=== PATIENT | male | born 1955 | race Caucasian/White ===

== ENCOUNTER 2018-04-03 11:12 | Inpatient (IN) | payer BC, OTHER ==
[2018-04-03] VITALS (7 sets, daily range): BP systolic 126–154; BP diastolic 81–92
[~2018-04-03] VITALS: Ht 188 cm; Wt 115.9 kg
[2018-04-03] MEDS ORDERED: METF500T9 PO (12:16)
[2018-04-03] MEDS ORDERED: ZOLP10TA5 PO (12:16)
[2018-04-03] MEDS ORDERED: PRAV20TA2 PO (12:16)
[2018-04-03] MEDS ORDERED: FURO20TA3 PO (12:16)
[2018-04-03] MEDS ORDERED: HYDR25TA6 PO (12:16)
[2018-04-03] MEDS ORDERED: AMLO1CAP3 PO (12:16)
[2018-04-03] MEDS ORDERED: FLUT1BLS INH (12:16)
[2018-04-03] MEDS ORDERED: POTA20TA89 PO (12:16)
[2018-04-03] MEDS ORDERED: SODIUM CHLORIDE FLUSH 10ML SYR IVF ONE (12:30)
[2018-04-03] MEDS ORDERED: ONDANSETRON 2MG/ML, 2ML IVPush ONE (12:30)
[2018-04-03] MEDS ORDERED: ASPIRIN 81 MG TABLET CHEW PO ONE (12:30)
[2018-04-03] MEDS ORDERED: MORPHINE SULFATE 4 MG/ML, 1ML IVPush PRN (12:30)
[2018-04-03] MEDS ORDERED: ASPIRIN 81 MG TABLET CHEW ONE (12:51)
[2018-04-03] MEDS ORDERED: METOPROLOL TARTRATE 50 MG TABLET PO ONE (13:00)
[2018-04-03] MEDS ORDERED: METOPROLOL TARTRATE 50 MG TABLET ONE (13:05)
[2018-04-03 13:11] LABS: ALANINE AMINOTRANSFERASE 51 U/L (12-78); ALBUMIN 3.9 g/dL (3.4-5.0); ANION GAP 8 mmol/L (5-15); CALCIUM 9.2 mg/dL (8.5-10.1); CHLORIDE 107 mmol/L (98-107)
[2018-04-03 13:15] LABS: ALKALINE PHOSPHATASE 52 U/L (45-117); BILIRUBIN,TOTAL 0.6 mg/dL (0.2-1.0); TOTAL PROTEIN 7.7 g/dL (6.4-8.2)
[2018-04-03 13:18] LABS: TROPONIN I 0.731 ng/mL (0.000-0.045)
[2018-04-03 13:38] LABS: MEAN CORPUSCULAR HEMOGLOBIN 28.9 pg (27.5-34.5); MEAN CORPUSCULAR HGB CONC 33.6 g/dL (33.2-36.2); MEAN CORPUSCULAR VOLUME 86.1 fL (81-97); MEAN PLATELET VOLUME 10.6 fL (7.4-10.4); PLATELET COUNT 192 x10^3/uL (130-400); RED BLOOD COUNT 5.97 x10^6/uL (4.38-5.82); RED CELL DISTRIBUTION WIDTH 13.6 % (9.4-14.8)
[2018-04-03 13:39] LABS: <PLATELET ESTIMATE> ADEQUATE; <RBC MORPHOLOGY> NORMAL; BASOPHILS # (AUTO) 0.05 x10^3/uL (0-0.1); BASOPHILS % (AUTO) 1 % (0-1); EOSINOPHILS # (AUTO) 0.27 x10^3/uL (0-0.4); EOSINOPHILS % (AUTO) 4 % (1-7); LARGE PLATELETS 1+; LYMPHOCYTES # (AUTO) 1.25 x10^3/uL (1-3.4); LYMPHOCYTES % (AUTO) 20 % (22-44); MD MORPH REVIEW ONLY; MONOCYTES # (AUTO) 0.34 x10^3/uL (0.2-0.8); MONOCYTES % (AUTO) 5 % (2-9); NEUTROPHILS # (AUTO) 4.29 x10^3/uL (1.8-6.8); NEUTROPHILS % (AUTO) 69 % (42-75)
[2018-04-03] MEDS ORDERED: ONDANSETRON 2MG/ML, 2ML IVPush PRN (14:30)
[2018-04-03] MEDS ORDERED: hydrALAzine 20 MG/ML, 1ML IVPush PRN (14:30)
[2018-04-03] MEDS: ENOXAPARIN 40 MG/0.4 ML SQ SCH (14:48)
[2018-04-03 14:53] LABS: FREE T4 (FREE THYROXINE) 1.15 ng/dL (0.76-1.46); THYROID STIMULATING HORMONE 2.7 mIU/L (0.358-3.740)
[2018-04-03] MEDS ORDERED: ENOXAPARIN 40 MG/0.4 ML ONE (14:53)
[2018-04-03] MEDS ORDERED: POLYETHYLENE GLYCOL 17 GM PACKET PO PRN (15:30)
[2018-04-03] MEDS: INSULIN LISPRO 100 UNITS/ML, PEN SQ-INSULIN SCH ×2 (16:00→21:13)
[2018-04-03] MEDS: morphine SULFATE 10 MG/ML, 1ML IVPush PRN ×2 (16:01→20:23)
[2018-04-03] MEDS ORDERED: NITROGLYCERIN 0.4 MG BOTTLE (25 TABS) SL ONE (19:48)
[2018-04-03] MEDS ORDERED: NITROGLYCERIN 0.4 MG/SPRAY SL PRN (20:00)
[2018-04-03] MEDS: NITROGLYCERIN 0.4 MG BOTTLE (25 TABS) SL PRN ×3 (20:00→20:12)
[2018-04-03] MEDS ORDERED: metFORMIN XR 500 MG TAB.ER.24H PO SCH (21:00)
[2018-04-03] MEDS ORDERED: PRAVASTATIN 20 MG TABLET PO SCH (21:00)
[2018-04-03] MEDS: PANTOPROZOLE 40MG TABLET PO SCH (21:09)
[2018-04-03] MEDS: ATORVASTATIN 80 MG TABLET PO SCH (21:09)
[2018-04-03] MEDS: METOPROLOL TARTRATE 25 MG TABLET PO SCH (21:10)
[2018-04-03] MEDS: ACETAMINOPHEN 325 MG TABLET PO PRN (21:18)
[2018-04-03] MEDS: TEMAZEPAM 15 MG CAPSULE PO PRN (23:01)
[2018-04-04] MEDS ORDERED: ENOXAPARIN 80 MG/0.8 ML SQ ONE
[2018-04-04 00:23] VITALS: BP 135/81
[2018-04-04 05:23] LABS: ANION GAP 8 mmol/L (5-15); CHLORIDE 107 mmol/L (98-107)
[2018-04-04 05:30] LABS: CALCIUM 8.7 mg/dL (8.5-10.1); CHOL/HDL RATIO 5.3; CHOLESTEROL, TOTAL 200 mg/dL (140-239); HDL CHOL % 19 % (26-37); HDL CHOLESTEROL (DIRECT) 38 mg/dL (40-60); LDL CHOLESTEROL,CALCULATED 136 mg/dL (54-169); LDL/HDL RATIO 3.6 (0.5-3.0); TRIGLYCERIDES 132 mg/dL (50-200); VLDL CHOLESTEROL 26 mg/dL (0-25)
[2018-04-04 05:36] LABS: BASOPHILS # (AUTO) 0.03 x10^3/uL (0-0.1); BASOPHILS % (AUTO) 1 % (0-1); EOSINOPHILS # (AUTO) 0.51 x10^3/uL (0-0.4); EOSINOPHILS % (AUTO) 7 % (1-7); LYMPHOCYTES # (AUTO) 2.17 x10^3/uL (1-3.4); LYMPHOCYTES % (AUTO) 28 % (22-44); MD NO; MEAN CORPUSCULAR HEMOGLOBIN 28.6 pg (27.5-34.5); MEAN CORPUSCULAR HGB CONC 33.2 g/dL (33.2-36.2); MEAN CORPUSCULAR VOLUME 86.2 fL (81-97); MEAN PLATELET VOLUME 10.2 fL (7.4-10.4); MONOCYTES # (AUTO) 0.48 x10^3/uL (0.2-0.8); MONOCYTES % (AUTO) 6 % (2-9); NEUTROPHILS # (AUTO) 4.63 x10^3/uL (1.8-6.8); NEUTROPHILS % (AUTO) 59 % (42-75); PLATELET COUNT 191 x10^3/uL (130-400); RED BLOOD COUNT 5.85 x10^6/uL (4.38-5.82); RED CELL DISTRIBUTION WIDTH 13.4 % (9.4-14.8)
[2018-04-04] MEDS: ASPIRIN 325 MG TABLET EC PO SCH (06:11)
[2018-04-04] MEDS: ACETAMINOPHEN 325 MG TABLET PO PRN ×2 (06:15→20:05)
[2018-04-04] MEDS: INSULIN LISPRO 100 UNITS/ML, PEN SQ-INSULIN SCH ×4 (07:00→21:00)
[2018-04-04] MEDS: AMLODIPINE 5 MG TABLET PO SCH (08:21)
[2018-04-04] MEDS: FUROSEMIDE 20 MG TABLET PO SCH (08:22)
[2018-04-04] MEDS: POTASSIUM CHLORIDE 20 MEQ TAB.ER.PRT PO SCH (08:22)
[2018-04-04] MEDS: METOPROLOL TARTRATE 25 MG TABLET PO SCH ×2 (08:22→20:05)
[2018-04-04] MEDS: PANTOPROZOLE 40MG TABLET PO SCH ×2 (08:33→20:05)
[2018-04-04] MEDS: BENAZEPRIL 20 MG TABLET PO SCH (08:39)
[2018-04-04] MEDS ORDERED: BENAZEPRIL PO SCH (09:00)
[2018-04-04] MEDS ORDERED: AMLODIPINE BESYLATE PO SCH (09:00)
[2018-04-04] MEDS ORDERED: [UNRECOGNIZED DRUG - OTHER] PO SCH (09:00)
[2018-04-04] MEDS ORDERED: SODIUM CHLORIDE 0.9% 1,000 ML IV ONE (10:00)
[2018-04-04 10:08] VITALS: BP 153/84
[2018-04-04] MEDS ORDERED: MIDAZOLAM 1 MG/ML, 5ML ONE (10:53)
[2018-04-04] MEDS ORDERED: VERAPAMIL 2.5 MG/ML, 2ML ONE (10:53)
[2018-04-04] MEDS ORDERED: TICAGRELOR 90 MG TABLET ONE (10:53)
[2018-04-04] MEDS ORDERED: FENTANYL PF 100 MCG/2ML ONE (10:53)
[2018-04-04] MEDS ORDERED: LIDOCAINE 2%, 2ML ONE (10:54)
[2018-04-04] MEDS ORDERED: HEPARIN 1,000 UNITS/ML, 10ML ONE (10:54)
[2018-04-04] MEDS ORDERED: NITROGLYCERIN 5 MG/ML, 10ML ONE (10:54)
[2018-04-04] MEDS ORDERED: BIVALIRUDIN 250 MG ONE (10:54)
[2018-04-04] MEDS: morphine SULFATE 10 MG/ML, 1ML IVPush PRN (12:28)
[2018-04-04] MEDS: SODIUM CHLORIDE 0.9% 1,000 ML IV SCH ×2 (12:37→20:10)
[2018-04-04 15:13] VITALS: BP 133/80
[2018-04-04] MEDS: ENOXAPARIN 40 MG/0.4 ML SQ SCH (16:27)
[2018-04-04 20:03] VITALS: BP 157/88
[2018-04-04] MEDS: ATORVASTATIN 80 MG TABLET PO SCH (20:05)
[2018-04-04] MEDS: TEMAZEPAM 15 MG CAPSULE PO PRN (20:15)
[2018-04-05 00:49] VITALS: BP 147/81
[2018-04-05] MEDS: SODIUM CHLORIDE 0.9% 1,000 ML IV SCH ×3 (03:47→19:47)
[2018-04-05] MEDS: ASPIRIN 325 MG TABLET EC PO SCH (04:37)
[2018-04-05 05:40] LABS: CHLORIDE 107 mmol/L (98-107)
[2018-04-05 05:46] LABS: ALBUMIN 3.5 g/dL (3.4-5.0); ANION GAP 11 mmol/L (5-15); CALCIUM 8.5 mg/dL (8.5-10.1); CREATININE 1.05 mg/dL (0.7-1.3)
[2018-04-05] MEDS: INSULIN LISPRO 100 UNITS/ML, PEN SQ-INSULIN SCH ×4 (07:00→21:00)
[2018-04-05 08:00] VITALS: BP 143/78
[2018-04-05] MEDS ORDERED: BENAZEPRIL 10 MG TABLET ONE (08:15)
[2018-04-05] MEDS: AMLODIPINE 5 MG TABLET PO SCH (08:25)
[2018-04-05] MEDS: POTASSIUM CHLORIDE 20 MEQ TAB.ER.PRT PO SCH (08:26)
[2018-04-05] MEDS: PANTOPROZOLE 40MG TABLET PO SCH ×2 (08:26→22:42)
[2018-04-05] MEDS: METOPROLOL TARTRATE 25 MG TABLET PO SCH ×4 (08:26→23:35)
[2018-04-05] MEDS: BENAZEPRIL 20 MG TABLET PO SCH (08:27)
[2018-04-05] MEDS: FUROSEMIDE 20 MG TABLET PO SCH (08:28)
[2018-04-05] MEDS ORDERED: CHLORHEXIDINE 15 ML BOTTLE MM PRN (11:30)
[2018-04-05] MEDS ORDERED: MAGNESIUM HYDROXIDE 8%, 30ML UDC PO PRN (11:30)
[2018-04-05] MEDS ORDERED: INSULIN LISPRO 100 UNITS/ML, PEN SQ-INSULIN SCH (11:30)
[2018-04-05] MEDS ORDERED: METOPROLOL TARTRATE 25 MG TABLET PO ONE (11:30)
[2018-04-05] MEDS ORDERED: ACETAMINOPHEN 325 MG TABLET PO PRN (11:30)
[2018-04-05 12:03] LABS: BASOPHILS # (AUTO) 0.05 x10^3/uL (0-0.1); BASOPHILS % (AUTO) 1 % (0-1); EOSINOPHILS # (AUTO) 0.33 x10^3/uL (0-0.4); EOSINOPHILS % (AUTO) 5 % (1-7); LYMPHOCYTES % (AUTO) 31 % (22-44); MD NO; MEAN CORPUSCULAR HEMOGLOBIN 28.5 pg (27.5-34.5); MEAN CORPUSCULAR HGB CONC 33.1 g/dL (33.2-36.2); MEAN CORPUSCULAR VOLUME 86.2 fL (81-97); MEAN PLATELET VOLUME 10.6 fL (7.4-10.4); MONOCYTES # (AUTO) 0.53 x10^3/uL (0.2-0.8); MONOCYTES % (AUTO) 8 % (2-9); NEUTROPHILS # (AUTO) 3.97 x10^3/uL (1.8-6.8); NEUTROPHILS % (AUTO) 56 % (42-75); PLATELET COUNT 212 x10^3/uL (130-400); RED CELL DISTRIBUTION WIDTH 13.6 % (9.4-14.8)
[2018-04-05 12:05] LABS: INTERNATIONAL NORMALIZED RATIO 1.05 (0.93-1.1); PROTHROMBIN TIME 10.8 Seconds (9.6-11.5)
[2018-04-05 12:07] LABS: CHLORIDE 106 mmol/L (98-107)
[2018-04-05 12:15] LABS: ALANINE AMINOTRANSFERASE 54 U/L (12-78); ALKALINE PHOSPHATASE 58 U/L (45-117); ANION GAP 7 mmol/L (5-15); BILIRUBIN,TOTAL 0.6 mg/dL (0.2-1.0); CREATININE 1.15 mg/dL (0.7-1.3)
[2018-04-05] MEDS: ALBUTEROL/IPRATROPIUM 2.5MG/0.5MG, 3 ML NPPB SCH ×2 (14:14→19:10)
[2018-04-05] MEDS ORDERED: ALBUTEROL/IPRATROPIUM 2.5MG/0.5MG, 3 ML NPPB PRN (14:30)
[2018-04-05 14:35] VITALS: BP 135/80
[2018-04-05 16:19] LABS: MICROSCOPIC NOT IND
[2018-04-05 17:47] VITALS: BP 135/80
[2018-04-05 21:00] VITALS: BP 153/91
[2018-04-05] MEDS: SODIUM CHLORIDE FLUSH 10ML SYR IVF SCH (22:41)
[2018-04-05] MEDS: MUPIROCIN OINT 2%, 22GM TP SCH (22:42)
[2018-04-05] MEDS: ATORVASTATIN 80 MG TABLET PO SCH (22:42)
[2018-04-06 01:02] VITALS: BP 135/79
[2018-04-06] MEDS: SODIUM CHLORIDE 0.9% 1,000 ML IV SCH (03:47)
[2018-04-06 04:17] VITALS: BP_SYST 120; BP_SYST 150; BP_DIAS 66; BP_DIAS 78
[2018-04-06] MEDS ORDERED: METOPROLOL TARTRATE 25 MG TABLET PO ONE (05:00)
[2018-04-06 05:07] VITALS: BP_SYST 143; BP_SYST 153; BP_DIAS 81; BP_DIAS 82
[2018-04-06] MEDS: ASPIRIN 325 MG TABLET EC PO SCH (05:18)
[2018-04-06] MEDS: INSULIN LISPRO 100 UNITS/ML, PEN SQ-INSULIN SCH ×4 (05:23→21:00)
[2018-04-06 05:34] LABS: BASOPHILS # (AUTO) 0.05 x10^3/uL (0-0.1); BASOPHILS % (AUTO) 1 % (0-1); EOSINOPHILS # (AUTO) 0.35 x10^3/uL (0-0.4); EOSINOPHILS % (AUTO) 5 % (1-7); LYMPHOCYTES % (AUTO) 27 % (22-44); MD NO; MEAN CORPUSCULAR HGB CONC 33.9 g/dL (33.2-36.2); MEAN CORPUSCULAR VOLUME 85.6 fL (81-97); MEAN PLATELET VOLUME 10.4 fL (7.4-10.4); MONOCYTES % (AUTO) 8 % (2-9); NEUTROPHILS # (AUTO) 4.45 x10^3/uL (1.8-6.8); NEUTROPHILS % (AUTO) 60 % (42-75); PLATELET COUNT 185 x10^3/uL (130-400); RED BLOOD COUNT 5.46 x10^6/uL (4.38-5.82); RED CELL DISTRIBUTION WIDTH 13.5 % (9.4-14.8)
[2018-04-06] MEDS: METOPROLOL TARTRATE 25 MG TABLET PO SCH (05:45)
[2018-04-06 05:52] LABS: CHLORIDE 108 mmol/L (98-107)
[2018-04-06] MEDS: MUPIROCIN OINT 2%, 22GM TP SCH ×2 (05:56→21:05)
[2018-04-06] MEDS ORDERED: HEPARIN 1,000 UNITS/ML, 10ML ONE (06:23)
[2018-04-06] MEDS ORDERED: PAPAVERINE 30 MG/ML, 2ML ONE ×2 (06:23→06:44)
[2018-04-06] MEDS ORDERED: MIDAZOLAM 10MG/2 ML ONE (06:28)
[2018-04-06] MEDS ORDERED: FENTANYL PF 250 MCG/5ML ONE ×4 (06:28→06:29)
[2018-04-06] MEDS ORDERED: PROPOFOL 10 MG/ML, 20ML ONE (06:29)
[2018-04-06] MEDS ORDERED: CALCIUM CHLORIDE 10%, 10ML SYR ONE (06:29)
[2018-04-06] MEDS ORDERED: PHENYLEPHRINE 10 MG/ML ONE (06:29)
[2018-04-06] MEDS ORDERED: ROCURONIUM 10MG/ML,5ML ONE ×4 (06:29→10:01)
[2018-04-06] MEDS ORDERED: AMINOCAPROIC ACID 250 MG/ML, 20ML ONE ×2 (06:29)
[2018-04-06] MEDS ORDERED: EPINEPHRINE 1 MG/ML, 1ML ONE (06:29)
[2018-04-06] MEDS ORDERED: LIDOCAINE GEL 2%, 5ML ONE (06:29)
[2018-04-06 06:33] LABS: ALANINE AMINOTRANSFERASE 54 U/L (12-78); ALBUMIN 3.7 g/dL (3.4-5.0); ALKALINE PHOSPHATASE 51 U/L (45-117); ANION GAP 9 mmol/L (5-15); BILIRUBIN,TOTAL 0.5 mg/dL (0.2-1.0); CALCIUM 8.8 mg/dL (8.5-10.1); CREATININE 1.08 mg/dL (0.7-1.3); TOTAL PROTEIN 7.4 g/dL (6.4-8.2)
[2018-04-06] MEDS ORDERED: MANNITOL PMX 20% 500 ML IVPB PRN (07:30)
[2018-04-06] MEDS ORDERED: ALBUMIN HUMAN 5% 500 ML IV PRN (07:30)
[2018-04-06] MEDS ORDERED: DEXMEDETOMIDINE 200 MCG in SODIUM CHLORIDE 0.9% 48 ML IV SCH (07:30)
[2018-04-06] MEDS ORDERED: EPINEPHRINE 2 MG in SODIUM CHLORIDE 0.9% 248 ML IV SCH (07:30)
[2018-04-06] MEDS ORDERED: VANCOMYCIN 1,700 MG in SODIUM CHLORIDE 0.9% 250 ML IVPB PRN (07:30)
[2018-04-06] MEDS ORDERED: POTASSIUM CHLORIDE 80 MEQ, SODIUM BICARBONATE 8.4% 10 MEQ, MAGNESIUM SULFATE 0.5 GM, LI... IV PRN (07:30)
[2018-04-06] MEDS ORDERED: PHENYLEPHRINE 10 MG in SODIUM CHLORIDE 0.9% 249 ML IV PRN ×2 (07:30→10:54)
[2018-04-06] MEDS ORDERED: CEFUROXIME 1.5 GM in SODIUM CHLORIDE 0.9% 50 ML IVPB PRN (07:30)
[2018-04-06] MEDS ORDERED: REGULAR INSULIN 62.5 UNITS in SODIUM CHLORIDE 0.9% 249.375 ML IV PRN ×2 (07:30→10:54)
[2018-04-06] MEDS ORDERED: VANCOMYCIN 1,700 MG in SODIUM CHLORIDE 0.9% 250 ML IV PRN (07:30)
[2018-04-06] MEDS: ALBUTEROL/IPRATROPIUM 2.5MG/0.5MG, 3 ML NPPB SCH ×4 (07:50→20:00)
[2018-04-06] MEDS ORDERED: POTASSIUM CHLORIDE 10 MEQ TABLET.ER PO SCH (08:00)
[2018-04-06] MEDS ORDERED: PAPAVERINE 30 MG/ML, 2ML IVPush ONE (08:04)
[2018-04-06] MEDS ORDERED: HEPARIN 1,000 UNITS/ML, 10ML IV ONE (08:13)
[2018-04-06] MEDS: PANTOPROZOLE 40MG TABLET PO SCH ×2 (09:00→21:05)
[2018-04-06] MEDS: DOCUSATE 100 MG CAPSULE PO SCH ×2 (09:00→21:05)
[2018-04-06] MEDS ORDERED: FUROSEMIDE 20 MG/2 ML IV SCH (09:00)
[2018-04-06] MEDS ORDERED: PROTAMINE SULFATE 10 MG/ML, 25ML ONE ×2 (09:06)
[2018-04-06] MEDS ORDERED: VASOPRESSIN 50 UNIT in SODIUM CHLORIDE 0.9% 247.5 ML IV PRN (10:54)
[2018-04-06] MEDS ORDERED: NITROGLYCERIN/D5W PMX 250 ML IV PRN (10:54)
[2018-04-06] MEDS ORDERED: SODIUM CHLORIDE 0.9% 1,000 ML IV PRN (10:54)
[2018-04-06] MEDS ORDERED: DOBUTAMINE 250 MG in SODIUM CHLORIDE 0.9% 230 ML IV PRN (10:54)
[2018-04-06] MEDS ORDERED: DEXMEDETOMIDINE 200 MCG in SODIUM CHLORIDE 0.9% 48 ML IV PRN (10:54)
[2018-04-06] MEDS ORDERED: DEXTROSE 4 GM TAB.CHEW PO PRN (11:00)
[2018-04-06] MEDS ORDERED: ONDANSETRON 2MG/ML, 2ML IVPush PRN (11:00)
[2018-04-06] MEDS ORDERED: BISACODYL 10 MG SUPP PR PRN (11:00)
[2018-04-06] MEDS ORDERED: EPINEPHRINE 2 MG in SODIUM CHLORIDE 0.9% 248 ML IV PRN (11:00)
[2018-04-06] MEDS ORDERED: MAGNESIUM SULFATE 1 GM in SODIUM CHLORIDE 0.9% 50 ML IVPB SCH (11:00)
[2018-04-06] MEDS ORDERED: SODIUM BICARB 8.4%, 50ML SYRINGE IV PRN (11:00)
[2018-04-06] MEDS ORDERED: GLUCAGON 1 MG IM PRN (11:00)
[2018-04-06] MEDS ORDERED: BISACODYL 5 MG EC TABLET PO PRN (11:00)
[2018-04-06] MEDS ORDERED: MIDAZOLAM 1 MG/ML, 5ML IVPush PRN (11:00)
[2018-04-06] MEDS ORDERED: ACETAMINOPHEN 650 MG SUPP PR PRN (11:00)
[2018-04-06] MEDS ORDERED: DEXTROSE 50%, 50ML SYRINGE IVPush PRN (11:00)
[2018-04-06] MEDS ORDERED: morphine SULFATE 10 MG/ML, 1ML IVPush PRN (11:00)
[2018-04-06] MEDS: KSCALE TO 4.5 IV SCH ×3 (11:00→23:00)
[2018-04-06] MEDS ORDERED: PROCHLORPERAZINE 5 MG/ML, 2ML IVPush PRN (11:00)
[2018-04-06] MEDS ORDERED: INSULIN REGULAR 100 UNITS/ML, 3ML VIAL IVPush PRN (11:00)
[2018-04-06] MEDS ORDERED: ACETAMINOPHEN 325 MG TABLET PO PRN (11:00)
[2018-04-06] MEDS ORDERED: SODIUM BICARBONATE 1 MEQ/ML, 50ML VIAL ONE (11:07)
[2018-04-06] MEDS ORDERED: LIDOCAINE 2% 100MG/5ML SYRINGE ONE (11:07)
[2018-04-06] MEDS ORDERED: HEPARIN 1,000 UNITS/ML, 30ML ONE (11:07)
[2018-04-06] MEDS ORDERED: ALBUMIN HUMAN 25% 50 ML ONE (11:08)
[2018-04-06 11:34] LABS: FIO2 60 %; GLUCOSE BY BLOOD GAS ANALYZER 156 mg/dL (70-110); HEMOGLOBIN BY BLOOD GAS ANALYZ 14.2 g/dL (14.0-18.0); POTASSIUM BY BLOOD GAS ANALYZR 3.4 mmol/L (3.6-5.5)
[2018-04-06] MEDS: SODIUM CHLORIDE FLUSH 10ML SYR IVF SCH ×3 (12:13→21:05)
[2018-04-06] MEDS ORDERED: POTASSIUM CHLORIDE 30 MEQ in SODIUM CHLORIDE 0.9% 100 ML IV ONE (13:30)
[2018-04-06] MEDS: LACTATED RINGERS 1,000 ML IV PRN ×2 (13:57→14:50)
[2018-04-06] MEDS: OXYcodone IR 5MG TABLET PO PRN ×4 (15:22→21:48)
[2018-04-06] MEDS: CYCLOBENZAPRINE 10 MG TABLET PO PRN (17:55)
[2018-04-06] MEDS: VANCOMYCIN 1,700 MG in SODIUM CHLORIDE 0.9% 250 ML IVPB SCH (18:53)
[2018-04-06 19:12] LABS: HEMOGLOBIN A1C 6.9 % (4.2-6.3)
[2018-04-06] MEDS: HYDROcodone/APAP 5/325 TABLET PO PRN (19:55)
[2018-04-06] MEDS: MUPIROCIN OINT 2%, 22GM NAS SCH (21:00)
[2018-04-06] MEDS: ATORVASTATIN 80 MG TABLET PO SCH (21:05)
[2018-04-07] MEDS: OXYcodone IR 5MG TABLET PO PRN ×6 (01:10→20:44)
[2018-04-07] MEDS: CYCLOBENZAPRINE 10 MG TABLET PO PRN (02:02)
[2018-04-07] MEDS: HYDROcodone/APAP 5/325 TABLET PO PRN ×2 (02:02→05:41)
[2018-04-07 04:21] LABS: BASOPHILS # (AUTO) 0.03 x10^3/uL (0-0.1); BASOPHILS % (AUTO) 0 % (0-1); EOSINOPHILS # (AUTO) 0.01 x10^3/uL (0-0.4); EOSINOPHILS % (AUTO) 0 % (1-7); LYMPHOCYTES # (AUTO) 1.22 x10^3/uL (1-3.4); LYMPHOCYTES % (AUTO) 10 % (22-44); MD NO; MEAN CORPUSCULAR HEMOGLOBIN 28.9 pg (27.5-34.5); MEAN CORPUSCULAR HGB CONC 33.5 g/dL (33.2-36.2); MEAN CORPUSCULAR VOLUME 86.3 fL (81-97); MEAN PLATELET VOLUME 10.5 fL (7.4-10.4); MONOCYTES # (AUTO) 0.99 x10^3/uL (0.2-0.8); MONOCYTES % (AUTO) 8 % (2-9); NEUTROPHILS # (AUTO) 9.82 x10^3/uL (1.8-6.8); NEUTROPHILS % (AUTO) 81 % (42-75); PLATELET COUNT 138 x10^3/uL (130-400); RED BLOOD COUNT 5.02 x10^6/uL (4.38-5.82); RED CELL DISTRIBUTION WIDTH 13.9 % (9.4-14.8)
[2018-04-07 04:27] LABS: ALBUMIN 3.2 g/dL (3.4-5.0); ANION GAP 8 mmol/L (5-15); CALCIUM 8.2 mg/dL (8.5-10.1); CHLORIDE 110 mmol/L (98-107); CREATININE 0.75 mg/dL (0.7-1.3)
[2018-04-07 04:28] LABS: INTERNATIONAL NORMALIZED RATIO 1.07 (0.93-1.1)
[2018-04-07] MEDS: KSCALE TO 4.5 IV SCH (05:00)
[2018-04-07] MEDS: ALBUTEROL/IPRATROPIUM 2.5MG/0.5MG, 3 ML NPPB SCH ×4 (07:00→18:57)
[2018-04-07] MEDS: SODIUM CHLORIDE FLUSH 10ML SYR IVF SCH ×4 (07:33→21:49)
[2018-04-07] MEDS: VANCOMYCIN 1,700 MG in SODIUM CHLORIDE 0.9% 250 ML IVPB SCH (07:49)
[2018-04-07] MEDS: CHLORHEXIDINE 15 ML BOTTLE MM SCH ×2 (07:50→21:59)
[2018-04-07] MEDS: METOPROLOL TARTRATE 25 MG TABLET PO/NG SCH ×2 (07:51→21:51)
[2018-04-07] MEDS: ASPIRIN 81 MG TABLET EC PO SCH (07:51)
[2018-04-07] MEDS: PANTOPROZOLE 40MG TABLET PO SCH ×2 (07:51→21:52)
[2018-04-07] MEDS: DOCUSATE 100 MG CAPSULE PO SCH ×2 (07:51→21:53)
[2018-04-07] MEDS: MUPIROCIN OINT 2%, 22GM NAS SCH ×2 (07:52→21:50)
[2018-04-07] MEDS ORDERED: BENAZEPRIL 10 MG TABLET ONE (07:58)
[2018-04-07 08:00] VITALS: BP 130/76
[2018-04-07] MEDS: FUROSEMIDE 40 MG/4 ML IV SCH (08:00)
[2018-04-07] MEDS: POTASSIUM CHLORIDE 20 MEQ TAB.ER.PRT PO SCH (08:00)
[2018-04-07] MEDS: INSULIN LISPRO 100 UNITS/ML, PEN SQ-INSULIN SCH ×4 (08:00→21:00)
[2018-04-07] MEDS: BENAZEPRIL 5 MG TABLET PO SCH (08:00)
[2018-04-07 12:01] VITALS: BP 139/87
[2018-04-07 20:15] VITALS: BP 106/68
[2018-04-07] MEDS: ATORVASTATIN 80 MG TABLET PO SCH (21:53)
[2018-04-08] VITALS (7 sets, daily range): BP systolic 104–145; BP diastolic 66–119
[2018-04-08] MEDS: OXYcodone IR 5MG TABLET PO PRN ×5 (02:40→21:19)
[2018-04-08] MEDS ORDERED: INSULIN LISPRO 100 UNITS/ML, PEN SQ-INSULIN ONE (03:30)
[2018-04-08 04:41] LABS: ANION GAP 7 mmol/L (5-15); CALCIUM 8.1 mg/dL (8.5-10.1); CHLORIDE 103 mmol/L (98-107)
[2018-04-08 04:43] LABS: CREATININE 1.03 mg/dL (0.7-1.3)
[2018-04-08 04:55] LABS: INTERNATIONAL NORMALIZED RATIO 1.17 (0.93-1.1)
[2018-04-08 05:20] LABS: BASOPHILS # (AUTO) 0.05 x10^3/uL (0-0.1); BASOPHILS % (AUTO) 0 % (0-1); EOSINOPHILS # (AUTO) 0.01 x10^3/uL (0-0.4); EOSINOPHILS % (AUTO) 0 % (1-7); LYMPHOCYTES # (AUTO) 1.37 x10^3/uL (1-3.4); LYMPHOCYTES % (AUTO) 11 % (22-44); MD SCAN; MEAN CORPUSCULAR HGB CONC 33.6 g/dL (33.2-36.2); MEAN CORPUSCULAR VOLUME 86.4 fL (81-97); MEAN PLATELET VOLUME 11.1 fL (7.4-10.4); MONOCYTES # (AUTO) 1.21 x10^3/uL (0.2-0.8); MONOCYTES % (AUTO) 9 % (2-9); NEUTROPHILS # (AUTO) 10.28 x10^3/uL (1.8-6.8); NEUTROPHILS % (AUTO) 80 % (42-75); PLATELET COUNT 142 x10^3/uL (130-400); RED BLOOD COUNT 4.83 x10^6/uL (4.38-5.82); RED CELL DISTRIBUTION WIDTH 13.8 % (9.4-14.8)
[2018-04-08] MEDS: INSULIN LISPRO 100 UNITS/ML, PEN SQ-INSULIN SCH ×4 (07:28→21:18)
[2018-04-08] MEDS: ENOXAPARIN 40 MG/0.4 ML SQ SCH (07:31)
[2018-04-08] MEDS: POTASSIUM CHLORIDE 20 MEQ TAB.ER.PRT PO SCH (08:49)
[2018-04-08] MEDS: DOCUSATE 100 MG CAPSULE PO SCH ×2 (08:49→21:17)
[2018-04-08] MEDS: ASPIRIN 81 MG TABLET EC PO SCH (08:50)
[2018-04-08] MEDS: BENAZEPRIL 5 MG TABLET PO SCH (08:50)
[2018-04-08] MEDS: FUROSEMIDE 40 MG/4 ML IV SCH (08:51)
[2018-04-08] MEDS: MUPIROCIN OINT 2%, 22GM NAS SCH ×2 (08:52→21:17)
[2018-04-08] MEDS: SODIUM CHLORIDE FLUSH 10ML SYR IVF SCH ×4 (08:52→21:16)
[2018-04-08] MEDS: PANTOPROZOLE 40MG TABLET PO SCH ×2 (08:53→21:17)
[2018-04-08] MEDS: METOPROLOL TARTRATE 25 MG TABLET PO/NG SCH ×2 (08:53→21:17)
[2018-04-08] MEDS: ALBUTEROL/IPRATROPIUM 2.5MG/0.5MG, 3 ML NPPB SCH ×2 (09:00→21:45)
[2018-04-08] MEDS: CHLORHEXIDINE 15 ML BOTTLE MM SCH ×2 (11:45→23:16)
[2018-04-08] MEDS: ATORVASTATIN 80 MG TABLET PO SCH (21:18)
[2018-04-09] VITALS (8 sets, daily range): BP systolic 90–139; BP diastolic 70–83
[2018-04-09] MEDS: OXYcodone IR 5MG TABLET PO PRN ×5 (01:45→19:41)
[2018-04-09 03:10] LABS: MEAN CORPUSCULAR HEMOGLOBIN 28.5 pg (27.5-34.5); MEAN CORPUSCULAR HGB CONC 33.2 g/dL (33.2-36.2); MEAN CORPUSCULAR VOLUME 85.9 fL (81-97); RED BLOOD COUNT 4.76 x10^6/uL (4.38-5.82); RED CELL DISTRIBUTION WIDTH 14.1 % (9.4-14.8)
[2018-04-09 03:15] LABS: ANION GAP 8 mmol/L (5-15); CALCIUM 8.3 mg/dL (8.5-10.1); CHLORIDE 101 mmol/L (98-107); CREATININE 0.95 mg/dL (0.7-1.3)
[2018-04-09 03:36] LABS: MD MORPH REVIEW ONLY; MEAN PLATELET VOLUME 11.1 fL (7.4-10.4); PLATELET COUNT 137 x10^3/uL (130-400)
[2018-04-09 03:37] LABS: <PLATELET ESTIMATE> ADEQUATE; <RBC MORPHOLOGY> NORMAL; BASOPHILS # (AUTO) 0.02 x10^3/uL (0-0.1); BASOPHILS % (AUTO) 0 % (0-1); EOSINOPHILS # (AUTO) 0.15 x10^3/uL (0-0.4); EOSINOPHILS % (AUTO) 1 % (1-7); LARGE PLATELETS 1+; LYMPHOCYTES # (AUTO) 1.32 x10^3/uL (1-3.4); LYMPHOCYTES % (AUTO) 13 % (22-44); MONOCYTES # (AUTO) 1.03 x10^3/uL (0.2-0.8); MONOCYTES % (AUTO) 10 % (2-9); NEUTROPHILS # (AUTO) 7.85 x10^3/uL (1.8-6.8); NEUTROPHILS % (AUTO) 76 % (42-75)
[2018-04-09 03:38] LABS: GIANT PLATELETS 1+
[2018-04-09] MEDS: INSULIN LISPRO 100 UNITS/ML, PEN SQ-INSULIN SCH ×4 (07:28→21:33)
[2018-04-09] MEDS ORDERED: AMIODARONE IV PRN (08:00)
[2018-04-09] MEDS ORDERED: FILTER 0.22 MICRON IV PRN (08:00)
[2018-04-09] MEDS ORDERED: AMIODARONE 150 MG in DEXTROSE 5% 100 ML IV ONE ×3 (08:00→11:00)
[2018-04-09] MEDS ORDERED: DEXTROSE 5% IV PRN (08:00)
[2018-04-09] MEDS: ALBUTEROL/IPRATROPIUM 2.5MG/0.5MG, 3 ML NPPB SCH (08:13)
[2018-04-09] MEDS: AMIODARONE 450 MG in DEXTROSE 5% 241 ML IV PRN ×2 (08:21→19:40)
[2018-04-09] MEDS: DOCUSATE 100 MG CAPSULE PO SCH ×2 (08:26→21:32)
[2018-04-09] MEDS: CLOPIDOGREL 75 MG TABLET PO SCH (08:27)
[2018-04-09] MEDS: POTASSIUM CHLORIDE 20 MEQ TAB.ER.PRT PO SCH (08:27)
[2018-04-09] MEDS: ASPIRIN 81 MG TABLET EC PO SCH (08:28)
[2018-04-09] MEDS: METOPROLOL TARTRATE 25 MG TABLET PO/NG SCH (08:28)
[2018-04-09] MEDS: FUROSEMIDE 40 MG/4 ML IV SCH (08:28)
[2018-04-09] MEDS: SODIUM CHLORIDE FLUSH 10ML SYR IVF SCH ×4 (08:28→21:32)
[2018-04-09] MEDS: PANTOPROZOLE 40MG TABLET PO SCH ×2 (08:28→21:32)
[2018-04-09] MEDS: MUPIROCIN OINT 2%, 22GM NAS SCH ×2 (08:30→21:32)
[2018-04-09] MEDS: ENOXAPARIN 40 MG/0.4 ML SQ SCH (08:31)
[2018-04-09] MEDS: BENAZEPRIL 5 MG TABLET PO SCH (09:45)
[2018-04-09] MEDS ORDERED: AMIODARONE 900 MG in DEXTROSE 5% 482 ML IV PRN (11:00)
[2018-04-09] MEDS ORDERED: POTASSIUM CHLORIDE 20 MEQ TAB.ER.PRT PO ONE (11:00)
[2018-04-09] MEDS ORDERED: METOPROLOL TARTRATE 50 MG TABLET PO/NG SCH (21:00)
[2018-04-09] MEDS: ATORVASTATIN 80 MG TABLET PO SCH (21:32)
[2018-04-09] MEDS: METOPROLOL TARTRATE 25 MG TABLET PO SCH (22:25)
[2018-04-10 01:22] VITALS: BP 103/69
[2018-04-10] MEDS: OXYcodone IR 5MG TABLET PO PRN ×5 (01:27→20:37)
[2018-04-10 05:11] LABS: BASOPHILS # (AUTO) 0.06 x10^3/uL (0-0.1); BASOPHILS % (AUTO) 1 % (0-1); EOSINOPHILS # (AUTO) 0.42 x10^3/uL (0-0.4); EOSINOPHILS % (AUTO) 4 % (1-7); LYMPHOCYTES # (AUTO) 1.53 x10^3/uL (1-3.4); LYMPHOCYTES % (AUTO) 16 % (22-44); MD NO; MEAN CORPUSCULAR HEMOGLOBIN 28.8 pg (27.5-34.5); MEAN CORPUSCULAR HGB CONC 33.2 g/dL (33.2-36.2); MEAN CORPUSCULAR VOLUME 86.6 fL (81-97); MEAN PLATELET VOLUME 11.8 fL (7.4-10.4); MONOCYTES # (AUTO) 0.93 x10^3/uL (0.2-0.8); MONOCYTES % (AUTO) 10 % (2-9); NEUTROPHILS # (AUTO) 6.44 x10^3/uL (1.8-6.8); NEUTROPHILS % (AUTO) 69 % (42-75); PLATELET COUNT 164 x10^3/uL (130-400); RED BLOOD COUNT 4.48 x10^6/uL (4.38-5.82); RED CELL DISTRIBUTION WIDTH 13.4 % (9.4-14.8)
[2018-04-10 05:15] LABS: CHLORIDE 100 mmol/L (98-107)
[2018-04-10 05:19] LABS: ANION GAP 7 mmol/L (5-15); CALCIUM 8.4 mg/dL (8.5-10.1); CREATININE 1.11 mg/dL (0.7-1.3)
[2018-04-10 06:05] VITALS: BP 112/76
[2018-04-10] MEDS: INSULIN LISPRO 100 UNITS/ML, PEN SQ-INSULIN SCH ×4 (07:00→21:35)
[2018-04-10 07:42] VITALS: BP 120/70
[2018-04-10] MEDS: FUROSEMIDE 40 MG/4 ML IV SCH (08:41)
[2018-04-10] MEDS: MUPIROCIN OINT 2%, 22GM NAS SCH ×2 (08:44→20:36)
[2018-04-10] MEDS: ENOXAPARIN 40 MG/0.4 ML SQ SCH (08:44)
[2018-04-10] MEDS: CLOPIDOGREL 75 MG TABLET PO SCH (08:48)
[2018-04-10] MEDS: ASPIRIN 81 MG TABLET EC PO SCH (08:48)
[2018-04-10] MEDS: METOPROLOL TARTRATE 25 MG TABLET PO SCH ×2 (08:48→20:37)
[2018-04-10] MEDS: DOCUSATE 100 MG CAPSULE PO SCH ×2 (08:48→20:37)
[2018-04-10] MEDS: PANTOPROZOLE 40MG TABLET PO SCH ×2 (08:48→20:36)
[2018-04-10] MEDS: POTASSIUM CHLORIDE 20 MEQ TAB.ER.PRT PO SCH (08:48)
[2018-04-10] MEDS: BENAZEPRIL 5 MG TABLET PO SCH (08:48)
[2018-04-10] MEDS: AMIODARONE 200 MG TABLET PO SCH ×2 (08:49→20:37)
[2018-04-10] MEDS ORDERED: ALBUTEROL/IPRATROPIUM 2.5MG/0.5MG, 3 ML NPPB PRN (09:00)
[2018-04-10] MEDS: SODIUM CHLORIDE FLUSH 10ML SYR IVF SCH ×4 (11:22→21:00)
[2018-04-10 14:23] VITALS: BP 102/70
[2018-04-10 19:25] VITALS: BP 124/73
[2018-04-10] MEDS: ATORVASTATIN 80 MG TABLET PO SCH (20:36)
[2018-04-11 00:43] VITALS: BP 104/70
[2018-04-11] MEDS: OXYcodone IR 5MG TABLET PO PRN (06:25)
[2018-04-11 06:40] LABS: MEAN CORPUSCULAR HEMOGLOBIN 28.2 pg (27.5-34.5); MEAN CORPUSCULAR HGB CONC 32.7 g/dL (33.2-36.2); MEAN CORPUSCULAR VOLUME 86.1 fL (81-97); RED BLOOD COUNT 4.61 x10^6/uL (4.38-5.82); RED CELL DISTRIBUTION WIDTH 13.8 % (9.4-14.8)
[2018-04-11 06:52] LABS: ANION GAP 6 mmol/L (5-15); CALCIUM 8.3 mg/dL (8.5-10.1); CHLORIDE 103 mmol/L (98-107); CREATININE 0.92 mg/dL (0.7-1.3)
[2018-04-11] MEDS: INSULIN LISPRO 100 UNITS/ML, PEN SQ-INSULIN SCH ×4 (07:00→20:46)
[2018-04-11 07:06] LABS: BASOPHILS # (AUTO) 0.06 x10^3/uL (0-0.1); BASOPHILS % (AUTO) 1 % (0-1); EOSINOPHILS # (AUTO) 0.43 x10^3/uL (0-0.4); EOSINOPHILS % (AUTO) 6 % (1-7); LYMPHOCYTES % (AUTO) 16 % (22-44); MD SCAN; MEAN PLATELET VOLUME 11.5 fL (7.4-10.4); MONOCYTES # (AUTO) 0.88 x10^3/uL (0.2-0.8); MONOCYTES % (AUTO) 12 % (2-9); NEUTROPHILS % (AUTO) 66 % (42-75); PLATELET COUNT 184 x10^3/uL (130-400)
[2018-04-11 08:15] VITALS: BP 118/87
[2018-04-11] MEDS: SODIUM CHLORIDE FLUSH 10ML SYR IVF SCH ×4 (09:00→20:44)
[2018-04-11] MEDS: POTASSIUM CHLORIDE 20 MEQ TAB.ER.PRT PO SCH (10:11)
[2018-04-11] MEDS: FUROSEMIDE 40 MG/4 ML IV SCH (10:11)
[2018-04-11] MEDS: METOPROLOL TARTRATE 25 MG TABLET PO SCH ×2 (10:14→20:45)
[2018-04-11] MEDS: BENAZEPRIL 5 MG TABLET PO SCH (10:14)
[2018-04-11] MEDS: MUPIROCIN OINT 2%, 22GM NAS SCH (10:14)
[2018-04-11] MEDS: CLOPIDOGREL 75 MG TABLET PO SCH (10:14)
[2018-04-11] MEDS: PANTOPROZOLE 40MG TABLET PO SCH ×2 (10:14→20:45)
[2018-04-11] MEDS: AMIODARONE 200 MG TABLET PO SCH ×2 (10:14→20:44)
[2018-04-11] MEDS: ASPIRIN 81 MG TABLET EC PO SCH (10:16)
[2018-04-11] MEDS: ENOXAPARIN 40 MG/0.4 ML SQ SCH (10:16)
[2018-04-11] MEDS: DOCUSATE 100 MG CAPSULE PO SCH ×2 (10:17→20:44)
[2018-04-11] MEDS: HYDROcodone/APAP 5/325 TABLET PO PRN ×2 (13:27→20:45)
[2018-04-11 14:29] VITALS: BP 115/76
[2018-04-11] MEDS: ATORVASTATIN 80 MG TABLET PO SCH (20:44)
[2018-04-11 21:12] VITALS: BP 130/82
[2018-04-12 03:55] VITALS: BP 118/72
[2018-04-12] MEDS: HYDROcodone/APAP 5/325 TABLET PO PRN ×2 (05:13→09:44)
[2018-04-12 05:44] LABS: ANION GAP 8 mmol/L (5-15); CALCIUM 8.5 mg/dL (8.5-10.1); CHLORIDE 101 mmol/L (98-107)
[2018-04-12 05:45] LABS: CREATININE 1.21 mg/dL (0.7-1.3)
[2018-04-12] MEDS: INSULIN LISPRO 100 UNITS/ML, PEN SQ-INSULIN SCH (07:00)
[2018-04-12 07:53] VITALS: BP 136/88
[2018-04-12] MEDS ORDERED: ASPI-621 PO (08:12)
[2018-04-12] MEDS ORDERED: HYDR-3240 PO (08:12)
[2018-04-12] MEDS ORDERED: AMIO400T5 PO (08:12)
[2018-04-12] MEDS ORDERED: METO25TA35 PO (08:12)
[2018-04-12] MEDS ORDERED: ATOR-2 PO (08:12)
[2018-04-12] MEDS ORDERED: CLOP75TA PO (08:12)
[2018-04-12] MEDS: FUROSEMIDE 40 MG/4 ML IV SCH (09:44)
[2018-04-12] MEDS: PANTOPROZOLE 40MG TABLET PO SCH (09:44)
[2018-04-12] MEDS: CLOPIDOGREL 75 MG TABLET PO SCH (09:44)
[2018-04-12] MEDS: ENOXAPARIN 40 MG/0.4 ML SQ SCH (09:44)
[2018-04-12] MEDS: BENAZEPRIL 5 MG TABLET PO SCH (09:45)
[2018-04-12] MEDS: AMIODARONE 200 MG TABLET PO SCH (09:45)
[2018-04-12] MEDS: ASPIRIN 81 MG TABLET EC PO SCH (09:45)
[2018-04-12] MEDS: METOPROLOL TARTRATE 25 MG TABLET PO SCH (09:45)
[2018-04-12] MEDS: DOCUSATE 100 MG CAPSULE PO SCH (09:45)
[2018-04-12] MEDS: POTASSIUM CHLORIDE 20 MEQ TAB.ER.PRT PO SCH (09:45)
[2018-04-12] MEDS: SODIUM CHLORIDE FLUSH 10ML SYR IVF SCH (09:46)
[2018-04-12] MEDS ORDERED: PNEUMOCOCCAL 23 VACCINE IM-VACC ONE (11:00)
== END 2018-04-12 12:11 | disposition home health service (06) | DRG 233 ==
LOC: ED 13:02 → EDIP 13:24 → SUATTDRO 13:36 → 5SO 14:59 → CCU 04-06 09:59 → 5SO 04-07 12:02 → DCLOUNGE 04-12 11:46
PROVIDERS: ADMIT Hospitalist; ATTEND Internal Medicine
PROC: B2111ZZ Fluoroscopy of Multiple Coronary Arteries using Low Osmolar Contrast (ICD-10-PCS; 2018-04-04)
PROC: B2151ZZ Fluoroscopy of Left Heart using Low Osmolar Contrast (ICD-10-PCS; 2018-04-04)
PROC: 4A023N7 Measurement of Cardiac Sampling and Pressure, Left Heart, Percutaneous Approach (ICD-10-PCS; 2018-04-04)
PROC: B246ZZ4 Ultrasonography of Right and Left Heart, Transesophageal (ICD-10-PCS; 2018-04-04)
PROC: 021209W Bypass Coronary Artery, Three Arteries from Aorta with Autologous Venous Tissue, Open Approach (ICD-10-PCS; 2018-04-06)
PROC: 06BQ4ZZ Excision of Left Saphenous Vein, Percutaneous Endoscopic Approach (ICD-10-PCS; 2018-04-06)
PROC: 06BP4ZZ Excision of Right Saphenous Vein, Percutaneous Endoscopic Approach (ICD-10-PCS; 2018-04-06)
PROC: 5A1221Z Performance of Cardiac Output, Continuous (ICD-10-PCS; 2018-04-06)
PROC: 02100Z9 Bypass Coronary Artery, One Artery from Left Internal Mammary, Open Approach (ICD-10-PCS; principal; 2018-04-06 07:30)
DX: I25.10 Atherosclerotic heart disease of native coronary artery without angina pectoris (principal); I21.4 Non-ST elevation (NSTEMI) myocardial infarction; I50.33 Acute on chronic diastolic (congestive) heart failure; I48.92 Unspecified atrial flutter; J98.11 Atelectasis; E11.9 Type 2 diabetes mellitus without complications; E66.9 Obesity, unspecified; E78.5 Hyperlipidemia, unspecified; I11.0 Hypertensive heart disease with heart failure; I48.91 Unspecified atrial fibrillation; J45.909 Unspecified asthma, uncomplicated; K21.9 Gastro-esophageal reflux disease without esophagitis; G89.29 Other chronic pain; M54.9 Dorsalgia, unspecified; Z87.891 Personal history of nicotine dependence; I25.2 Old myocardial infarction; Z91.19 Patient's noncompliance with other medical treatment and regimen; Z95.5 Presence of coronary angioplasty implant and graft; Z68.32 Body mass index [BMI] 32.0-32.9, adult
CPT/HCPCS: 36415; 36600; 71045; 71046; 80048; 80053; 80061; 81003; 82040; 82330; 82800; 82803; 82810; 82947; 82962; 83036; 83605; 83735; 83880; 84100; 84132; 84295; 84439; 84443; 84484; 85014; 85018; 85025; 85049; 85347; 85610; 85730; 86850; 86900; 86923; 87081; 90732; 93005; 93306; 93312; 93321; 93325; 93458; 93880; 93970; 94002; 94060; 94150; 94640; 96372; 99156; C1769; C1894; J0171; J0583; J0697; J1644; J1650; J1815; J1940; J2250; J2704; J2720; J3010; J3370; J3475; J3480; J3490; J7060; J7620; P9045; P9047; C1751; C1760; J0282; J2270; J2370; J2440; J7030; J7050; J7120; Q9967

== ENCOUNTER → 2018-06-01 | Outpatient (CLI) | payer BC, OTHER ==
[~2018-06-01] MED LIST: AMIO400T5 PO; AMLO1CAP3 PO; APIX5TAB PO; ASPI-621 PO; ATOR-2 PO; CLOP75TA PO; FLUT1BLS INH; FURO20TA3 PO; HYDR-3240 PO; HYDR25TA6 PO; METF500T9 PO; METO25TA35 PO; POTA20TA89 PO; PRAV20TA2 PO; ZOLP10TA5 PO
== END | disposition home or self-care (01) ==
LOC: CFH 06:42
PROVIDERS: ATTEND Internal Medicine Cardiovascular Disease
DX: I08.0 Rheumatic disorders of both mitral and aortic valves (principal); I25.10 Atherosclerotic heart disease of native coronary artery without angina pectoris; I10 Essential (primary) hypertension; E11.9 Type 2 diabetes mellitus without complications; E78.5 Hyperlipidemia, unspecified; Z95.1 Presence of aortocoronary bypass graft
CPT/HCPCS: 93306